=== PATIENT | female | born 1960 ===

== ENCOUNTER 2021-09-20 09:58 | Emergency (ER) | payer BC ==
[2021-09-20 10:49] VITALS: BP 149/92; PULSE 73
--- NOTE | 2021-09-20 12:17 | EDM.PDOC ---
ED HPI GENERAL MEDICAL PROBLEM - General Chief Complaint: Chest Pain Stated Complaint: back pain Time Seen by Provider: 09/20/21 11:15 Source of Information: Reports: Patient, Family () History Limitations: Reports: No Limitations - History of Present Illness INITIAL COMMENTS - FREE TEXT/NARRATIVE: Mrs. Decker is a very pleasant 61-year-old woman who now presents to the ED stating that she developed sudden-onset left anterior chest and left scapular area pain when she bent over around 08:20 this morning. She is unable to describe the character of the pain, but states that it has considerably improved since its onset, such that the left anterior chest pain has completely resolved, and the left scapular area is now "sore". Of the pain that she does have, she notes that it is only present if she moves or breathes, and is not present if she remains perfectly still. No associated dyspnea, nausea, diaphoresis, or sense of impending doom. No prior similar symptoms. The patient states that she took 4 ibuprofen (800 mg) around 08:30. Here in the ED, the patient's initial BP is found to be mildly elevated at 149/92, otherwise, she is hemodynamically stable, afebrile, saturating 100% on room air. She appears to be a little anxious, but in no acute distress. Prior to this 08:20 morning, the patient denies having a recent fever, chills, sore throat, ear pain, nasal or sinus congestion, cough, dyspnea, chest pain, palpitations, nausea, vomiting, constipation, diarrhea, abdominal pain, urinary symptoms, recent weight gain or weight loss, recent bloody bowel movements or black bowel movements, recent joint aches, headaches, or rashes. The patient's PCP is Shavon Hernandez NP. She has not received a COVID vaccination, nor an influenza vaccination this season. 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 Other Treatments BRASS PICKLER: 800 mg Ibuprofen travel pta - Related Data Allergies Allergy/AdvReac Type Severity Reaction Status Date / Time No Known Allergies Allergy Verified 12/23/15 21:13 Home Meds: Home Meds Amoxicillin/Potassium Clav [Amox-Clav 875-125 mg Tablet] 1 tab PO BID 12/23/15 [History] Cefdinir [Omnicef] 300 mg PO Q12H 12/23/15 [History] Fluticasone Propionate [Flonase Allergy Relief] 1 spray INH DAILY 12/23/15 [History] Loratadine/Pseudoephedrine [Claritin-D 12 Hour] 1 tab PO Q12HR #12 tab.er 12/23/15 [Rx] Zolpidem Tartrate [Ambien] 5 mg PO BEDTIME 12/23/15 [History] Orphenadrine [Norflex] 1 tab PO Q12H PRN #14 tab.er 09/20/21 [Rx] Past Medical History - Infectious Disease History Infectious Disease History: Reports: Chicken Pox, Measles Social & Family History - Tobacco Use Tobacco Use Status *Q: Never Tobacco User - Recreational Drug Use Recreational Drug Use: No - Living Situation & Occupation Living situation: Reports: , with Spouse Occupation: Employed ([employer]) ED ROS GENERAL - Review of Systems Review Of Systems: Comprehensive ROS is negative, except as noted in HPI. ED EXAM, GENERAL - Physical Exam Exam: See Below Exam Limited By: No Limitations General Appearance: Alert, WD/WN, No Apparent Distress Eye Exam: Bilateral Eye: EOMI, Normal Inspection Ears: Normal External Exam, Hearing Grossly Normal Nose: Normal Inspection Throat/Mouth: Normal Inspection, Normal Lips, Normal Voice, No Airway Compromise Head: Atraumatic, Normocephalic Neck: Normal Inspection, Full Range of Motion Respiratory/Chest: No Respiratory Distress, Lungs Clear, Normal Breath Sounds, No Accessory Muscle Use, Chest Non-Tender (left anterior), Other (Left anterior chest pain is not induced with the patient pressing her hands together with outstretched arms in front of her, or by having her cross her left upper extremity across her chest, although the latter does induce some left scapular area discomfort). No: Decreased Breath Sounds, Crackles, Rhonchi, Wheezing, Stridor, Prolonged Expiration Cardiovascular: Normal Peripheral Pulses, Regular Rate, Rhythm, No Edema, No Gallop, No JVD, No Murmur, No Rub Peripheral Pulses: 3+: Radial (L), Radial (R) GI/Abdominal: Normal Bowel Sounds, Soft, Non-Tender, No Organomegaly, No Distention, No Abnormal Bruit, No Mass Back Exam: Normal Inspection, Full Range of Motion, Other (Pain is not reproduced by palpation of the left parascapular musculature) Extremities: Normal Inspection, Normal Range of Motion, No Pedal Edema, Normal Capillary Refill Neurological: Alert, Oriented, Normal Cognition, No Motor/Sensory Deficits Psychiatric: Normal Affect Skin Exam: Warm, Dry, Intact, Normal Color, No Rash #1 Interpretation EKG Date: 09/20/21 Time: 11:03 Rhythm: NSR Rate (Beats/Min): 70 [place]: LAD-Left [place] Deviation P-Wave: Present QRS: Normal ST-T: Normal QT: Normal Comparison: NA - No Prior EKG Course - Vital Signs Last Recorded V/S: Last Vital Signs Temp 36.7 C 09/20/21 10:41 Pulse 73 09/20/21 10:41 Resp 11 L 09/20/21 10:41 BP 149/92 H 09/20/21 10:41 Pulse Ox 100 09/20/21 10:41 - Orders/Labs/Meds Labs: Laboratory Tests 09/20/21 09/20/21 09/20/21 Range/Units 11:24 11:24 11:24 WBC 5.07 (3.98-10.04) K/mm3 RBC 4.41 (3.98-5.22) M/mm3 Hgb 13.4 (11.2-15.7) gm/dl Hct 38.4 (34.1-44.9) % MCV 87.1 (79.4-94.8) fl MCH 30.4 (25.6-32.2) pg MCHC 34.9 (32.2-35.5) g/dl RDW Std Deviation 38.7 (36.4-46.3) fL Plt Count 181 L (182-369) K/mm3 MPV 10.6 (9.4-12.3) fl Neut % (Auto) 61.5 (34.0-71.1) % Lymph % (Auto) 27.4 (19.3-51.7) % [place] % (Auto) 8.9 (4.7-12.5) % Eos % (Auto) 1.8 (0.7-5.8) Baso % (Auto) 0.4 (0.1-1.2) % Neut # (Auto) 3.12 (1.56-6.13) K/mm3 Lymph # (Auto) 1.39 (1.18-3.74) K/mm3 [place] # (Auto) 0.45 H (0.24-0.36) K/mm3 Eos # (Auto) 0.09 (0.04-0.36) K/mm3 Baso # (Auto) 0.02 (0.01-0.08) K/mm3 D-Dimer, Quantitative (0.19-0.50) mg/L Sodium 142 (136-145) mEq/L Potassium 4.3 (3.5-5.1) mEq/L Chloride 107 (98-107) mEq/L Carbon Dioxide 27 (21-32) mEq/L Anion Gap 12.3 (5-15) BUN 12 (7-18) mg/dL Creatinine 0.7 (0.55-1.02) mg/dL Est Cr Clr Drug Dosing 76.90 mL/min Estimated GFR (MDRD) > 60 (>60) mL/min BUN/Creatinine Ratio 17.1 (14-18) Glucose 95 (70-99) mg/dL Calcium 9.1 (8.5-10.1) mg/dL Total Bilirubin 0.6 (0.2-1.0) mg/dL AST 19 (15-37) U/L ALT 21 (14-59) U/L Alkaline Phosphatase 75 (46-116) U/L Troponin I < 0.017 (0.00-0.056) ng/mL Total Protein 7.1 (6.4-8.2) g/dl Albumin 4.0 (3.4-5.0) g/dl Globulin 3.1 gm/dL Albumin/Globulin Ratio 1.3 (1-2) 09/20/ Range/Units 11:24 WBC (3.98-10.04) K/mm3 RBC (3.98-5.22) M/mm3 Hgb (11.2-15.7) gm/dl Hct (34.1-44.9) % MCV (79.4-94.8) fl MCH (25.6-32.2) pg MCHC (32.2-35.5) g/dl RDW Std Deviation (36.4-46.3) fL Plt Count (182-369) K/mm3 MPV (9.4-12.3) fl Neut % (Auto) (34.0-71.1) % Lymph % (Auto) (19.3-51.7) % [place] % (Auto) (4.7-12.5) % Eos % (Auto) (0.7-5.8) Baso % (Auto) (0.1-1.2) % Neut # (Auto) (1.56-6.13) K/mm3 Lymph # (Auto) (1.18-3.74) K/mm3 [place] # (Auto) (0.24-0.36) K/mm3 Eos # (Auto) (0.04-0.36) K/mm3 Baso # (Auto) (0.01-0.08) K/mm3 D-Dimer, Quantitative < 0.19 L (0.19-0.50) mg/L Sodium (136-145) mEq/L Potassium (3.5-5.1) mEq/L Chloride (98-107) mEq/L Carbon Dioxide (21-32) mEq/L Anion Gap (5-15) BUN (7-18) mg/dL Creatinine (0.55-1.02) mg/dL Est Cr Clr Drug Dosing mL/min Estimated GFR (MDRD) (>60) mL/min BUN/Creatinine Ratio (14-18) Glucose (70-99) mg/dL Calcium (8.5-10.1) mg/dL Total Bilirubin (0.2-1.0) mg/dL AST (15-37) U/L ALT (14-59) U/L Alkaline Phosphatase (46-116) U/L Troponin I (0.00-0.056) ng/mL Total Protein (6.4-8.2) g/dl Albumin (3.4-5.0) g/dl Globulin gm/dL Albumin/Globulin Ratio (1-2) Meds: Medications Discontinued Medications Generic Name Dose Route Start Last Admin Trade Name Freq PRN Reason Stop Dose Admin Orphenadrine Citrate 100 mg 09/20/21 13:00 09/20/21 13:28 Orphenadrine 100 Mg Tab.Er PO 09/20/21 13:01 Not Given ONETIME STA - Re-Assessments/Exams Free Text/Narrative Re-Assessment/Exam: 09/20/21 12:13 As above, the patient developed sudden-onset left anterior chest and left scapular area pain around 08:20 this morning, when she bent over. She still feels some left scapular area discomfort, although her left anterior chest pain has completely resolved. Her physical exam is unremarkable. An ECG, obtained at triage, shows no ischemic changes. A CBC, CMP, and troponin were also ordered at triage. I have added a D-dimer and chest x-ray. 09/20/21 12:40 2-view chest radiograph is read by Dr. Waller as: 1. Findings which are believed to be incidental. 2. Nothing acute is seen on 2-view chest x-ray. The patient's CBC is remarkable for mild thrombocytopenia of 181,000, with remainder of her CBC being unremarkable. Her CMP is unremarkable. Her troponin is undetectably low. Her D-dimer is undetectably low. 09/20/21 13:01 Test results discussed with the patient and her . As above, today's work-up is completely unremarkable. I suspect that her pain is musculoskeletal in etiology, therefore I recommended that we start her on Norflex, and have her continue to take OTC ibuprofen as needed for discomfort. The patient is agreeable. Because she had 4 ibuprofen this morning, I am not going to give her additional ibuprofen at this time. Departure - Departure Time of Disposition: 13:01 Disposition: Home, Self-Care 01 Condition: Good Clinical Impression: Musculoskeletal chest pain - Discharge Information *PRESCRIPTION DRUG MONITORING PROGRAM REVIEWED*: Not Applicable *COPY OF PRESCRIPTION DRUG MONITORING REPORT IN PATIENT [place]: Not Applicable Prescriptions: Orphenadrine [Norflex] 1 tab PO Q12H PRN #14 tab.er PRN Reason: Muscle Spasm - Painful Instructions: Chest Wall Pain, [id number] Referrals: Shavon Hernandez [employer] [Primary Care Provider] - Forms: ED Department Discharge Additional Instructions: You were seen in the emergency room after developing sudden-onset anterior and posterior chest pain after bending over this morning. Work-up in the ER included several blood tests, a chest x-ray, and an ECG. Your entire work-up was unremarkable. You have not suffered a heart attack. You do not have a blood clot in your lungs. You do not have a collapsed lung. Based on your history, physical exam, and ER tests, the cause of your chest pain is most likely musculoskeletal in etiology. You have been started on the muscle relaxant Norflex, and a prescription for Norflex has been sent to the [facility]. Take 1 tablet of Norflex every 12 hours, starting this evening, 09/20/2021, as prescribed. Norflex works well with ibuprofen. We recommend that you take 2 to 3 tablets (400-600 mg) of [id number] ibuprofen up to every 8 hours, with food, as needed for discomfort. If you are still having discomfort after a couple of days, please follow-up with your PCP, Shavon Hernandez NP, for further evaluation. If any other problems, please do not hesitate to return to the ER. Sepsis Event Note (ED) - Evaluation Sepsis Screening Result: No Definite Risk
--- NOTE | 2021-09-20 12:39 | CR ---
Chest: PA and lateral views of the chest were obtained. Comparison: Prior chest x-ray of 07/09/[address] of the 12/02/16 and baseline chest x-ray 11/09/16. Heart size and mediastinum are normal. Minimal linear density is seen within the lateral left costophrenic angle compatible with slight atelectasis. Lungs otherwise are clear. Bony structures appear unremarkable for the patient's age. Impression: 1. Findings which are believed to be incidental. 2. Nothing acute is seen on 2-view chest x-ray. Diagnostic code #2
[2021-09-20] MEDS ORDERED: Orphenadrine 100 MG Tab.ER PO STA (13:00)
== END 2021-09-20 13:25 | disposition home or self-care (01) ==
LOC: JD.ED 09:58
DX: R07.9 Chest pain, unspecified (principal); M25.512 Pain in left shoulder
CPT/HCPCS: 36415; 71046; 71046-26; 80053; 84484; 85025; 85379; 93005; 99285-25